=== PATIENT | female | born 1940 | race Caucasian/White ===

== ENCOUNTER 2017-05-05 11:58 | Outpatient (CLI) | END 2017-05-06 11:59 | disposition short-term general hospital (02) | LOC: AMBL 11:58 | PROVIDERS: ATTEND Internal Medicine | DX: R55 Syncope and collapse (principal); R53.1 Weakness; S00.03XA Contusion of scalp, initial encounter; S99.912A Unspecified injury of left ankle, initial encounter; W19.XXXA Unspecified fall, initial encounter; Y92.002 Bathroom of unspecified non-institutional (private) residence as the place of occurrence of the external cause ==

== ENCOUNTER 2018-07-21 07:48 | Day surgery (SDC) ==
[2018-07-21 08:07] VITALS: TEMP 97.4
[2018-07-21] MEDS ORDERED: LIDOCAINE 1% 20 ML MDV ID STA (08:07)
[2018-07-21] MEDS ORDERED: VERSED ONE ×2 (09:55)
[2018-07-21] MEDS ORDERED: DIPRIVAN 20 ML VIAL IVP ONE ×2 (09:55)
--- NOTE | 2018-07-22 09:29 | OP ---
INDICATIONS FOR PROCEDURE: 77 year old female presents for a screening colon exam. She has family history of colon polyps involving her brother, unknown age. MEDICATIONS: SEE ANESTHESIA NOTES. PROCEDURE: COLONOSCOPY. SNARE POLYPECTOMY REPORT: The risks, benefits, alternatives and limitations were discussed in detail with the patient. Informed consent was obtained. After adequate sedation was achieved, a digital rectal exam revealed good tone, no masses. The colonoscope was introduced into the rectum and advanced under direct visual guidance to the cecum. The cecum was identified by the appendiceal orifice and IC valve. I then slowly withdrew the scope in a circumferential manner and examined the mucosa quite carefully. I looked on the proximal and distal sides of folds and flexures as best as possible. I was able to retroflex the scope in the right colon and the left colon to increase visualization. In the proximal transverse area there was two small polyps about 4mm in size and semi-sessile. I removed these by snare technique. They were completely destroyed so no tissue remaining to retrieve. In the sigmoid colon there was scattered small diverticuli. On retroflex view of the anal canal there was a small non-engorged internal hemorrhoid. The prep was good and the withdraw time was 8 minutes and 6 seconds. The patient tolerated the procedure well with stable vital signs and pulse oximetry throughout. IMPRESSION: 1. Two diminutive polyps destroyed 2. Sigmoid diverticulosis 3. Non-engorged internal hemorrhoid RECOMMENDATIONS: 1. High fiber diet 2. Office visit as needed 3. Colonoscopy examination again in 5 years or sooner if there are signs and symptoms to indicate otherwise. CC: Dr. Bianka BAPTISTE
[2018-07-22 10:29] VITALS: BP 136/57
== END 2018-07-21 11:15 | disposition home or self-care (01) ==
LOC: SURG 07:48
PROVIDERS: ATTEND Internal Medicine Gastroenterology
DX: Z83.71 Family history of colonic polyps (principal); K57.90 Diverticulosis of intestine, part unspecified, without perforation or abscess without bleeding; K64.8 Other hemorrhoids; K63.5 Polyp of colon